=== PATIENT | male | born 1970 | race African-American/Black ===

== ENCOUNTER 2016-12-27 12:05 | Inpatient (IN) | payer OTHER ==
[2016-12-27 13:17] VITALS: BMI 32.3
[2016-12-27] MEDS ORDERED: MAG HYDROX/AL HYDROX/SIMETH 30 ML UNIT-DOSE CUP PO PRN (16:38)
[2016-12-27] MEDS ORDERED: MAGNESIUM CITRATE 300 ML BOTTLE PO PRN (16:38)
[2016-12-27] MEDS ORDERED: LOPERAMIDE HCL 2 MG CAPSULE PO PRN (16:38)
[2016-12-27] MEDS ORDERED: hydrOXYzine PAMOATE 50 MG CAPSULE (FP) PO PRN (16:38)
[2016-12-27] MEDS ORDERED: MAGNESIUM HYDROX 2400MG/30ML ORAL SUSPENSION 30 ML CUP PO PRN (16:38)
[2016-12-27] MEDS ORDERED: P-EPHED 60MG/TRIPROLIDI 2.5MG TABLET PO PRN (16:38)
[2016-12-27] MEDS ORDERED: MENTHOL/PHENOL 1 EACH UD MM PRN (16:38)
[2016-12-27] MEDS ORDERED: NICOTINE POLACRILEX 4 MG GUM BC PRN (16:38)
[2016-12-27] MEDS ORDERED: guaiFENesin/D-METHORPHAN HB 10 ML UNIT-DOSE CUPS PO PRN (16:38)
[2016-12-27] MEDS ORDERED: ACETAMINOPHEN 325 MG TABLET (FP) PO PRN (16:38)
--- NOTE | 2016-12-27 16:38 | HP ---
CIWA Score - CIWA Score Nausea/Vomitin Muscle Tremors: 4-Moderate,w/Arms Extend Anxiety: 4-Mod. Anxious/Guarded Agitation: 5 Paroxysmal Sweats: 2 Orientation: 3-Disoriented Date>2 days Tacttile Disturbances: 0-None Auditory Disturbances: 0-None Visual Disturbances: 0-None Headache: 0-None Present CIWA-Ar Total Score: 20 Admission ROS [facility] - HPI Chief Complaint: withdrawal sx Allergies/Adverse Reactions: Allergies Allergy/AdvReac Type Severity Reaction Status Date / Time No Known Allergies Allergy Verified 12/27/16 13:49 History of Present Illness: 46 YEARS OLD MALE WITH LONG HISTORY OF ALCOHOL NICOTINE DEPENDENCE, HAS HYPERTENSION HYPERLIPIDEMIA, S/P STROKE 2016 NO SEQUELA TREATED WITH ASPIRIN, DENIES MENTAL ILLNESS IS ADMITTED TO DETOX Exam Limitations: No Limitations - Ebola screening Have you traveled outside of the country in the last 21 days: No Have you had contact with anyone from an Ebola affected area: No Have you been sick,other than usual withdrawal symptoms: No Do you have a fever: No - Review of Systems Constitutional: Chills, Changes in sleep, Weight Stable EENT: reports: No Symptoms Reported Respiratory: reports: No Symptoms reported Cardiac: reports: No Symptoms Reported GI: reports: Nausea, Poor Fluid Intake, Vomiting, Indigestion, Abdominal cramping : reports: No Symptoms Reported Musculoskeletal: reports: Back Pain Integumentary: reports: No Symptoms Reported Neuro: reports: Tremors Endocrine: reports: No Symptoms Reported Psychiatric: reports: Judgement Intact, Mood/Affect Appropiate Other Systems: Reviewed and Negative Patient History - Patient Medical History Hx Anemia: No Hx Asthma: No Hx Chronic Obstructive Pulmonary Disease (COPD): No Hx Cancer: No Hx Cardiac Disorders: No Hx Congestive Heart Failure: No Hx Hypertension: Yes Hx Hypercholesterolemia: Yes Hx Pacemaker: No HX Cerebrovascular Accident: No Hx Seizures: No Hx Dementia: No Hx Diabetes: No Hx Gastrointestinal Disorders: Yes Hx Liver Disease: No Hx Genitourinary Disorders: No Hx Sexually Transmitted Disorders: No Hx Renal Disease (ESRD): No Hx Thyroid Disease: No Hx Human Immunodeficiency Virus (HIV): No Hx Hepatitis C: No Hx Depression: No Hx Suicide Attempt: No Hx Bipolar Disorder: No Hx Schizophrenia: No - Patient Surgical History Past Surgical History: No Hx Neurologic Surgery: No Hx Cataract Extraction: No Hx Cardiac Surgery: No Hx Lung Surgery: No Hx Breast Surgery: No Hx Breast Biopsy: No Hx Abdominal Surgery: No Hx Appendectomy: No Hx Cholecystectomy: No Hx Genitourinary Surgery: No Hx Orthopedic Surgery: No - PPD History Previous Implant?: Yes Documented Results: Negative w/o proof Implanted On Prior R Admission?: No PPD to be Administered?: Yes - Smoking Cessation Smoking history: Current every day smoker Have you smoked in the past 12 months: Yes Aproximately how many cigarettes per day: 20 Cigars Per Day: 0 Hx Chewing Tobacco Use: No Initiated information on smoking cessation: Yes 'Breaking Loose' booklet given: 12/27/16 - Substance & Tx. History Hx Alcohol Use: Yes Hx Substance Use: No Substance Use Type: Alcohol, Cocaine Hx Substance Use Treatment: Yes - Substances Abused Crack Route: Smoking Frequency: 1-2 times per week Amount used: $40 Age of first use: 25 Date of Last Use: 12/25/16 Alcohol-beer/rum Route: Oral Frequency: Daily Amount used: 1-2 6 pks./1 pt. Age of first use: 15 Date of Last Use: 12/27/16 Family Disease History - Family Disease History Family Disease History: Heart Disease: Father (NO CONTACT), Other: Father Admission Physical Exam B[facility] - Vital Signs Vital Signs: Vital Signs - 24 hr 12/27/16 13:16 Temperature 97.0 F L Pulse Rate 81 Respiratory 18 Rate Blood Pressure 164/115 - Physical General Appearance: Yes: Nourished, Appropriately Dressed, Moderate Distress, Tremorous, Irritable, Sweating, Anxious HEENTM: Yes: Hearing grossly Normal, Normal ENT Inspection, Normocephalic, Normal Voice Respiratory: Yes: Chest Non-Tender, Lungs Clear, Normal Breath Sounds, No Respiratory Distress, No Accessory Muscle Use Neck: Yes: Supple, Trachea in good position Breast: Yes: Breasts Symetrical Abdominal: Yes: Non Tender, Soft Genitourinary: Yes: Within Normal Limits Back: Yes: Normal Inspection Musculoskeletal: Yes: full range of Motion, Gait Steady, Back pain Extremities: Yes: Normal Inspection, Normal Range of Motion, Non-Tender, Tremors Neurological: Yes: Alert, Motor Strength 5/5, Normal Mood/Affect, Normal Response Integumentary: Yes: Warm Lymphatic: Yes: Within Normal Limits - Diagnostic (1) Alcohol dependence with uncomplicated withdrawal Current Visit: Yes Status: Acute (2) Methadone maintenance therapy patient Current Visit: Yes Status: Acute Comment: 90 MG VERIFIED BY S RN A.MArslan (3) Hypertension Current Visit: Yes Status: Acute Qualifiers: Hypertension type: essential hypertension Qualified Code(s): I10 - Essential (primary) hypertension (4) Hyperlipidemia Current Visit: Yes Status: Acute Qualifiers: Hyperlipidemia type: pure hypercholesterolemia Qualified Code(s): E78.0 - Pure hypercholesterolemia (5) S/P stroke due to cerebrovascular disease Current Visit: Yes Status: Resolved Comment: NO SEQUELA (6) Nicotine dependence Current Visit: Yes Status: Acute Qualifiers: Nicotine product type: cigarettes Substance use status: in withdrawal Qualified Code(s): F17.213 - Nicotine dependence, cigarettes, with withdrawal (7) Cocaine dependence, uncomplicated Current Visit: Yes Status: Chronic Cleared for Admission [facility] - Detox or Rehab [facility] Level of Care: Medically Managed Detox Regimen/Protocol: Librium S Breath Alcohol Content Breath Alcohol Content: 0 Urine Drug Screen - Results Drug Screen Negative: No Urine Drug Screen Results: LEX-Cocaine, MTD-Methadone
[2016-12-27] MEDS ORDERED: CYCLOBENZAPRINE HCL 10 MG TABLET (FP) PO PRN (16:41)
[2016-12-27] MEDS: chlordiazePOXIDE HCL 25 MG CAPSULE PO PRN (17:50)
[2016-12-27] MEDS: cloNIDine HCL 0.1 MG TABLET PO PRN (18:03)
[2016-12-27] MEDS: PATIENT'S OWN MEDICATION (NON-FORMULARY) (Simvastatin 40 MG) PO SCH (23:01)
[2016-12-27] MEDS: chlordiazePOXIDE HCL 25 MG CAPSULE PO SCH (23:01)
[2016-12-27] MEDS: RANITIDINE HCL 150 MG TABLET (FP) PO SCH (23:01)
[2016-12-27] MEDS: THIAMINE HCL 100 MG TABLET (FP) PO SCH (23:01)
[2016-12-27 23:13] LABS: URINE APPEARANCE CLEAR; URINE BILIRUBIN NEGATIVE (NEGATIVE); URINE BLOOD NEGATIVE (NEGATIVE); URINE COLOR LTYELLOW; URINE GLUCOSE (UA) NEGATIVE (NEGATIVE); URINE KETONE NEGATIVE (NEGATIVE); URINE LEUK ESTERASE NEGATIVE (NEGATIVE); URINE NITRITE NEGATIVE (NEGATIVE); URINE PROTEIN 3+ (NEGATIVE); URINE UROBILINOGEN NEGATIVE E.U./dl (0.2-1.0)
[2016-12-27 23:22] LABS: URINE BACTERIA RARE /hpf (NONE SEEN); URINE HYALINE CAST 2 /lpf; URINE MUCUS RARE; URINE RBC 3 /hpf (0-3); URINE WBC <1 /hpf (3-5)
[2016-12-28] MEDS ORDERED: METHADONE HCL 10 MG TABLET ONE (04:56)
[2016-12-28] MEDS ORDERED: METHADONE HCL 40 MG DISPERSABLE TABLET ONE (04:56)
[2016-12-28] MEDS: chlordiazePOXIDE HCL 25 MG CAPSULE PO SCH ×4 (05:22→22:05)
[2016-12-28] MEDS: METHADONE 80 MG, METHADONE 10 MG PO SCH (05:22)
[2016-12-28] MEDS ORDERED: METHADONE HCL 10 MG TABLET PO SCH (06:00)
[2016-12-28] MEDS: cloNIDine HCL 0.1 MG TABLET PO PRN (06:29)
[2016-12-28] MEDS: amLODIPine BESYLATE 5 MG TABLET (FP) PO SCH (10:05)
[2016-12-28] MEDS: NICOTINE 21 MG/24 HOURS TOPICAL PATCH TD SCH (10:05)
[2016-12-28] MEDS: ASPIRIN 81 MG CHEWABLE TABLETS PO SCH (10:05)
[2016-12-28] MEDS: RANITIDINE HCL 150 MG TABLET (FP) PO SCH ×2 (10:05→22:05)
[2016-12-28] MEDS: PRENATAL VITAMINS W/ FOLIC ACID TABLET (FP) PO SCH (10:05)
--- NOTE | 2016-12-28 10:15 | PN ---
[facility] CIWA - CIWA Score Nausea/Vomitin-No Nausea/No Vomiting Muscle Tremors: 4-Moderate,w/Arms Extend Anxiety: 4-Mod. Anxious/Guarded Agitation: 3 Paroxysmal Sweats: 3 Orientation: 0-Oriented Tacttile Disturbances: 0-None Auditory Disturbances: 0-None Visual Disturbances: 0-None Headache: 0-None Present CIWA-Ar Total Score: 14 S Progress Note (SOAP) Subjective: Anxiety,tremors,sweating,interrupted sleep,restless Objective: 12/28/16 10:14 Vital Signs - 8 hr 12/28/16 12/28/16 05:53 09:44 Temperature 95.7 F L 97 F L Pulse Rate 51 L 60 Respiratory 18 20 Rate Blood Pressure 160/101 99/74 Laboratory Tests 12/27/16 22:50 Urine Color Ltyellow Urine Appearance Clear Urine pH 5.0 Ur Specific [place] 1.016 Urine Protein 3+ H Urine Glucose (UA) Negative Urine Ketones Negative Urine Blood Negative Urine Nitrite Negative Urine Bilirubin Negative Urine Urobilinogen Negative Ur Leukocyte Esterase Negative Urine RBC 3 Urine WBC <1 Urine Bacteria Rare Hyaline Casts 2 Urine Mucus Rare u/a noted Assessment: 12/28/16 10:15 Withdrawal sx. Plan: Continue detox
[2016-12-28 10:36] LABS: MCH 31.5 pg (25.7-33.7); MCHC 33.3 g/dl (32.0-35.9); MEAN CELL VOLUME 94.7 fl (80-96); PLATELET COUNT 273 K/MM3 (134-434); WHITE BLOOD COUNT 9.4 K/mm3 (4.0-10.0)
[2016-12-28 10:39] LABS: ALBUMIN 3.9 g/dl (3.4-5.0); CALCIUM 9.7 mg/dL (8.5-10.1); CREATININE 2.3 mg/dL (0.7-1.3)
[2016-12-28 10:41] LABS: BILIRUBIN,TOTAL 0.3 mg/dL (0.2-1.0); TOT PROT 7.9 g/dl (6.4-8.2)
[2016-12-28 11:03] LABS: HIV 1 & 2 AB NEGATIVE; HIV 1 AGp24 NEGATIVE
--- NOTE | 2016-12-28 11:07 | EKG ---
Test Reason : Blood Pressure : / mmHG Vent. Rate : 063 BPM Atrial Rate : 063 BPM P-R Int : 172 ms QRS Dur : 108 ms QT Int : 416 ms P-R-T Axes : 025 -16 035 degrees QTc Int : 425 ms SINUS RHYTHM WITH FREQUENT PREMATURE VENTRICULAR COMPLEXES OTHERWISE NORMAL ECG NO PREVIOUS ECGS AVAILABLE Confirmed by GEORGE SHANE, MATTHEW ([id number]) on 12/28/2016 11:07:20 AM Referred By: Carlton Peterson Confirmed By:MATTHEW VAZQUEZ MD
[2016-12-28] MEDS: THIAMINE HCL 100 MG TABLET (FP) PO SCH (22:05)
[2016-12-28] MEDS: PATIENT'S OWN MEDICATION (NON-FORMULARY) (Simvastatin 40 MG) PO SCH (22:06)
[2016-12-29] MEDS: chlordiazePOXIDE HCL 25 MG CAPSULE PO PRN (02:13)
[2016-12-29] MEDS ORDERED: METHADONE HCL 40 MG DISPERSABLE TABLET ONE (04:02)
[2016-12-29] MEDS ORDERED: METHADONE HCL 10 MG TABLET ONE (04:02)
[2016-12-29] MEDS: METHADONE 80 MG, METHADONE 10 MG PO SCH (05:38)
[2016-12-29] MEDS: cloNIDine HCL 0.1 MG TABLET PO PRN ×2 (05:40→22:06)
[2016-12-29] MEDS: chlordiazePOXIDE HCL 25 MG CAPSULE PO SCH ×3 (05:40→17:04)
[2016-12-29] MEDS: NICOTINE 21 MG/24 HOURS TOPICAL PATCH TD SCH (10:11)
[2016-12-29] MEDS: ASPIRIN 81 MG CHEWABLE TABLETS PO SCH (10:11)
[2016-12-29] MEDS: RANITIDINE HCL 150 MG TABLET (FP) PO SCH ×2 (10:11→22:06)
[2016-12-29] MEDS: PRENATAL VITAMINS W/ FOLIC ACID TABLET (FP) PO SCH (10:11)
[2016-12-29] MEDS: amLODIPine BESYLATE 5 MG TABLET (FP) PO SCH (10:11)
[2016-12-29] MEDS ORDERED: amLODIPine BESYLATE 5 MG TABLET (FP) PO SCH (10:56)
--- NOTE | 2016-12-29 12:29 | PN ---
S CIWA - CIWA Score Nausea/Vomitin-No Nausea/No Vomiting Muscle Tremors: 4-Moderate,w/Arms Extend Anxiety: 3 Agitation: 3 Paroxysmal Sweats: 3 Orientation: 0-Oriented Tacttile Disturbances: 0-None Auditory Disturbances: 0-None Visual Disturbances: 0-None Headache: 0-None Present CIWA-Ar Total Score: 13 S Progress Note (SOAP) Subjective: Anxiety,tremors,sweating,interrupted sleep,restless. Objective: 12/29/16 12:28 Vital Signs - 8 hr 12/29/16 12/29/16 06:07 09:40 Temperature 96.5 F L 97.1 F L Pulse Rate 57 L 53 L Respiratory 18 18 Rate Blood Pressure 156/92 134/88 Laboratory Tests 12/27/16 12/27/16 12/27/16 06:00 08:00 22:50 WBC RBC Hgb Hct MCV MCHC RDW Plt Count MPV Sodium Potassium Chloride Carbon Dioxide Anion Gap BUN Creatinine Creat Clearance w eGFR Random Glucose Calcium Total Bilirubin AST ALT Alkaline Phosphatase Total Protein Albumin Urine Color Ltyellow Urine Appearance Clear Urine pH 5.0 Ur Specific [place] 1.016 Urine Protein 3+ H Urine Glucose (UA) Negative Urine Ketones Negative Urine Blood Negative Urine Nitrite Negative Urine Bilirubin Negative Urine Urobilinogen Negative Ur Leukocyte Esterase Negative Urine RBC 3 Urine WBC <1 Urine Bacteria Rare Hyaline Casts 2 Urine Mucus Rare RPR Titer Hepatitis C Antibody <0.1 HIV 1&2 Antibody Screen Negative HIV P24 Antigen Negative 12/28/16 12/28/16 12/28/16 06:00 06:00 06:00 WBC 9.4 RBC 4.58 Hgb 14.4 Hct 43.4 MCV 94.7 MCHC 33.3 RDW 15.0 Plt Count 273 MPV 8.0 Sodium 140 Potassium 4.3 Chloride 102 Carbon Dioxide 27 Anion Gap 11 BUN 31 H Creatinine 2.3 H Creat Clearance w eGFR 30.63 Random Glucose 116 H Calcium 9.7 Total Bilirubin 0.3 AST 29 ALT 38 Alkaline Phosphatase 104 Total Protein 7.9 Albumin 3.9 Urine Color Urine Appearance Urine pH Ur Specific [place] Urine Protein Urine Glucose (UA) Urine Ketones Urine Blood Urine Nitrite Urine Bilirubin Urine Urobilinogen Ur Leukocyte Esterase Urine RBC Urine WBC Urine Bacteria Hyaline Casts Urine Mucus RPR Titer Nonreactive Hepatitis C Antibody HIV 1&2 Antibody Screen HIV P24 Antigen labs noted,repeat creat,bun,fbs & u/a Assessment: 12/29/16 12:29 Withdrawal Sx. Plan: Continue detox
[2016-12-29] MEDS: chlordiazePOXIDE 5 MG CAPSULE PO SCH (22:06)
[2016-12-29] MEDS: THIAMINE HCL 100 MG TABLET (FP) PO SCH (22:06)
[2016-12-29] MEDS: PATIENT'S OWN MEDICATION (NON-FORMULARY) (Simvastatin 40 MG) PO SCH (22:07)
[2016-12-29] MEDS: diphenhydrAMINE HCL 50 MG CAPSULE PO PRN (22:23)
[2016-12-30] MEDS ORDERED: METHADONE HCL 10 MG TABLET ONE (03:34)
[2016-12-30] MEDS ORDERED: METHADONE HCL 40 MG DISPERSABLE TABLET ONE (03:34)
[2016-12-30] MEDS: chlordiazePOXIDE 5 MG CAPSULE PO SCH ×3 (05:16→17:36)
[2016-12-30] MEDS: METHADONE 80 MG, METHADONE 10 MG PO SCH (05:16)
--- NOTE | 2016-12-30 09:50 | PN ---
S Progress Note (SOAP) Subjective: Sweating,interrupted sleep,restless Objective: 12/30/16 09:48 Vital Signs - 8 hr 12/30/16 12/30/16 12/30/16 03:30 06:55 09:25 Temperature 97.2 F L 97.5 F L Pulse Rate 65 61 Respiratory 18 18 20 Rate Blood Pressure 134/87 108/77 Laboratory Last Values WBC 9.4 K/mm3 (4.0-10.0) 12/28/16 06:00 RBC 4.58 M/mm3 (4.00-5.60) 12/28/16 06:00 Hgb 14.4 GM/dL (11.7-16.9) 12/28/16 06:00 Hct 43.4 % (35.4-49) 12/28/16 06:00 MCV 94.7 fl (80-96) 12/28/16 06:00 MCHC 33.3 g/dl (32.0-35.9) 12/28/16 06:00 RDW 15.0 % (11.9-15.9) 12/28/16 06:00 Plt Count 273 K/MM3 (134-434) 12/28/16 06:00 MPV 8.0 fl (7.5-11.1) 12/28/16 06:00 Sodium 140 mmol/L (136-145) 12/28/16 06:00 Potassium 4.3 mmol/L (3.5-5.1) 12/28/16 06:00 Chloride 102 mmol/L (98-107) 12/28/16 06:00 Carbon Dioxide 27 mmol/L (21-32) 12/28/16 06:00 Anion Gap 11 (8-16) 12/28/16 06:00 BUN 31 mg/dL (7-18) H 12/28/16 06:00 Creatinine 2.3 mg/dL (0.7-1.3) H 12/28/16 06:00 Creat Clearance w eGFR 30.63 (>60) 12/28/16 06:00 Random Glucose 116 mg/dL (74-106) H 12/28/16 06:00 Calcium 9.7 mg/dL (8.5-10.1) 12/28/16 06:00 Total Bilirubin 0.3 mg/dL (0.2-1.0) 12/28/16 06:00 AST 29 U/L (15-37) 12/28/16 06:00 ALT 38 U/L (12-78) 12/28/16 06:00 Alkaline Phosphatase 104 U/L (45-117) 12/28/16 06:00 Total Protein 7.9 g/dl (6.4-8.2) 12/28/16 06:00 Albumin 3.9 g/dl (3.4-5.0) 12/28/16 06:00 Urine Color Ltyellow 12/27/16 22:50 Urine Appearance Clear 12/27/16 22:50 Urine pH 5.0 (5.0-8.0) 12/27/16 22:50 Ur Specific [place] 1.016 (1.001-1.035) 12/27/16 22:50 Urine Protein 3+ (NEGATIVE) H 12/27/16 22:50 Urine Glucose (UA) Negative (NEGATIVE) 12/27/16 22:50 Urine Ketones Negative (NEGATIVE) 12/27/16 22:50 Urine Blood Negative (NEGATIVE) 12/27/16 22:50 Urine Nitrite Negative (NEGATIVE) 12/27/16 22:50 Urine Bilirubin Negative (NEGATIVE) 12/27/16 22:50 Urine Urobilinogen Negative E.U./dl (0.2-1.0) 12/27/16 22:50 Ur Leukocyte Esterase Negative (NEGATIVE) 12/27/16 22:50 Urine RBC 3 /hpf (0-3) 12/27/16 22:50 Urine WBC <1 /hpf (3-5) 12/27/16 22:50 Urine Bacteria Rare /hpf (NONE SEEN) 12/27/16 22:50 Hyaline Casts 2 /lpf 12/27/16 22:50 Urine Mucus Rare 12/27/16 22:50 RPR Titer Nonreactive (NONREACTIVE) 12/28/16 06:00 Hepatitis C Antibody <0.1 s/co ratio (0.0-0.9) 12/27/16 06:00 HIV 1&2 Antibody Screen Negative 12/27/16 08:00 HIV P24 Antigen Negative 12/27/16 08:00 labs noted Assessment: 12/30/16 09:49 Withdrawal sx. Plan: Continue detox
[2016-12-30 09:55] LABS: CREATININE 2.2 mg/dL (0.7-1.3)
[2016-12-30] MEDS: ASPIRIN 81 MG CHEWABLE TABLETS PO SCH (10:07)
[2016-12-30] MEDS: PRENATAL VITAMINS W/ FOLIC ACID TABLET (FP) PO SCH (10:07)
[2016-12-30] MEDS: amLODIPine BESYLATE 10 MG TABLET (FP) PO SCH (10:08)
[2016-12-30] MEDS: RANITIDINE HCL 150 MG TABLET (FP) PO SCH ×2 (10:08→22:08)
[2016-12-30] MEDS: NICOTINE 21 MG/24 HOURS TOPICAL PATCH TD SCH (10:08)
[2016-12-30] MEDS: cloNIDine HCL 0.1 MG TABLET PO PRN (22:08)
[2016-12-30] MEDS: THIAMINE HCL 100 MG TABLET (FP) PO SCH (22:08)
[2016-12-30] MEDS: chlordiazePOXIDE HCL 10 MG CAPSULE PO SCH (22:08)
[2016-12-30] MEDS: diphenhydrAMINE HCL 50 MG CAPSULE PO PRN (22:08)
[2016-12-30] MEDS: PATIENT'S OWN MEDICATION (NON-FORMULARY) (Simvastatin 40 MG) PO SCH (22:10)
[2016-12-30 22:41] LABS: URINE APPEARANCE CLEAR; URINE BILIRUBIN NEGATIVE (NEGATIVE); URINE BLOOD NEGATIVE (NEGATIVE); URINE COLOR LTYELLOW; URINE GLUCOSE (UA) NEGATIVE (NEGATIVE); URINE KETONE NEGATIVE (NEGATIVE); URINE LEUK ESTERASE NEGATIVE (NEGATIVE); URINE NITRITE NEGATIVE (NEGATIVE); URINE UROBILINOGEN NEGATIVE E.U./dl (0.2-1.0)
[2016-12-30 22:46] LABS: URINE PROTEIN 2+ (NEGATIVE)
[2016-12-30 23:15] LABS: URINE MUCUS RARE; URINE RBC 1 /hpf (0-3); URINE WBC 1 /hpf (3-5)
[2016-12-31] MEDS ORDERED: METHADONE HCL 10 MG TABLET ONE (01:39)
[2016-12-31] MEDS ORDERED: METHADONE HCL 40 MG DISPERSABLE TABLET ONE (01:40)
[2016-12-31] MEDS: METHADONE 80 MG, METHADONE 10 MG PO SCH (05:30)
[2016-12-31] MEDS: chlordiazePOXIDE HCL 10 MG CAPSULE PO SCH ×2 (05:30→10:56)
[2016-12-31 06:38] VITALS: BP 147/97; PULSE 64; TEMP 96.2
--- NOTE | 2016-12-31 09:05 | DS ---
[facility] Detox Discharge Summary Admission Date: 12/27/16 Discharge Date: 12/31/16 - History Present History: Alcohol Dependence, Cocaine Dependence, MMTP Additional Comments: DETOX COMPLETED.ALERT O X 3. NAD. PT INSTRUCTED TO FOLLOW UP WITH HIS PMD AT [address] [place] [address] FOR MEDICAL MANAGEMENT. Pertinent Past History: HYPERLIPIDEMIA HTN S/P STROKE - Physical Exam Results Vital Signs: Vital Signs Temperature 96.2 F L 12/31/16 06:37 Pulse Rate 64 12/31/16 06:37 Respiratory Rate 18 12/31/16 06:37 Blood Pressure 147/97 12/31/16 06:37 O2 Sat by Pulse Oximetry (%) Pertinent Admission Physical Exam Findings: WITHDRAWAL SX - Treatment Hospital Course: Detox Protocol Followed, Detoxed Safely, Responded well, Discharged Condition Good - Medication Discharge Medications: Ambulatory Orders Amlodipine Besylate [Norvasc -] 5 mg PO DAILY 12/27/16 Aspirin [ASA -] 81 mg PO DAILY 12/27/16 Multivitamins [Multivit ([facility] Formulary)] 1 tab PO DAILY 12/27/16 Simvastatin [Zocor -] 40 mg PO HS 12/27/16 - Diagnosis (1) Alcohol dependence with uncomplicated withdrawal Current Visit: Yes Status: Acute (2) Hyperlipidemia Current Visit: Yes Status: Chronic Qualifiers: Hyperlipidemia type: pure hypercholesterolemia Qualified Code(s): E78.0 - Pure hypercholesterolemia (3) Hypertension Current Visit: Yes Status: Chronic Qualifiers: Hypertension type: essential hypertension Qualified Code(s): I10 - Essential (primary) hypertension (4) Methadone maintenance therapy patient Current Visit: Yes Status: Chronic (5) Nicotine dependence Current Visit: Yes Status: Acute Qualifiers: Nicotine product type: cigarettes Substance use status: in withdrawal Qualified Code(s): F17.213 - Nicotine dependence, cigarettes, with withdrawal (6) Cocaine dependence, uncomplicated Current Visit: Yes Status: Chronic (7) S/P stroke due to cerebrovascular disease Current Visit: Yes Status: Resolved - AMA Did Patient Leave Against Medical Advice: No
[2016-12-31] MEDS: ASPIRIN 81 MG CHEWABLE TABLETS PO SCH (10:55)
[2016-12-31] MEDS: RANITIDINE HCL 150 MG TABLET (FP) PO SCH (10:56)
[2016-12-31] MEDS: PRENATAL VITAMINS W/ FOLIC ACID TABLET (FP) PO SCH (10:56)
[2016-12-31] MEDS: amLODIPine BESYLATE 10 MG TABLET (FP) PO SCH (10:56)
[2016-12-31] MEDS: NICOTINE 21 MG/24 HOURS TOPICAL PATCH TD SCH (10:56)
== END 2016-12-31 09:36 | disposition home or self-care (01) | DRG 773 ==
LOC: YASAS 12:05 → Y3N 15:21
PROVIDERS: ADMIT Internal Medicine; ATTEND Internal Medicine
PROC: HZ2ZZZZ Detoxification Services for Substance Abuse Treatment (ICD-10-PCS; principal; 2016-12-31)
DX: F11.20 Opioid dependence, uncomplicated (principal); F10.230 Alcohol dependence with withdrawal, uncomplicated; F14.20 Cocaine dependence, uncomplicated; F17.213 Nicotine dependence, cigarettes, with withdrawal; I10 Essential (primary) hypertension; E78.5 Hyperlipidemia, unspecified; Z86.73 Personal history of transient ischemic attack (TIA), and cerebral infarction without residual deficits
CPT/HCPCS: 36415; 80053; 81003; 81015; 82565; 82947; 84520; 85027; 86593; 87389; 93005; 93010

== ENCOUNTER 2018-02-01 11:17 | Inpatient (IN) | payer OTHER ==
[2018-02-01 13:24] VITALS: BMI 31.1
--- NOTE | 2018-02-01 13:45 | HP ---
CIWA Score - CIWA Score Nausea/Vomitin Muscle Tremors: 3 Anxiety: 3 Agitation: 3 Paroxysmal Sweats: 2 Orientation: 0-Oriented Tacttile Disturbances: 1-Very Mild Itch/Numbness Auditory Disturbances: 1-Very Mild Visual Disturbances: 0-None Headache: 2-Mild CIWA-Ar Total Score: 18 Admission ROS S - [facility] Chief Complaint: I DAVID HELP TO STOP DRINKING ALCOHOL,HEROIN ABUSED,MMTP 90/DAY Allergies/Adverse Reactions: Allergies Allergy/AdvReac Type Severity Reaction Status Date / Time No Known Allergies Allergy Verified 02/01/18 13:33 History of Present Illness: THIS 47 YEARS OLD MALE WITH ALCOHOL DEPENDENCE,HEROIN ABUSED,COCAINE DEPENDENCE , MMTP 90 MGS/DAY,LAST MEDICATED TODAY, LAST TREATMENT 12/27/16 TO 12/31/16 HISTORY OF HYPERTENSION, LONGEST PERIOD OF SOBRIETY 2 YEARS NICOTINE DEPENDENCE SEEKING DETOX - Ebola screening Have you traveled outside of the country in the last 21 days: No Have you had contact with anyone from an Ebola affected area: No Have you been sick,other than usual withdrawal symptoms: No Do you have a fever: No - Review of Systems Constitutional: Chills, Loss of Appetite, Malaise, Night Sweats, Changes in sleep, Weakness, Unintentional Wgt. Loss EENT: reports: Nose Congestion Respiratory: reports: No Symptoms reported Cardiac: reports: No Symptoms Reported GI: reports: Diarrhea, Nausea, Vomiting : reports: No Symptoms Reported Musculoskeletal: reports: Back Pain, Muscle Pain Integumentary: reports: Dryness Neuro: reports: Headache, Tremors Endocrine: reports: No Symptoms Reported Hematology: reports: No Symptoms Reported Psychiatric: reports: No Sypmtoms Reported, Judgement Intact, Mood/Affect Appropiate, Orientated x3 (INSOMNIA), Anxious, Depressed Patient History - Patient Medical History Hx Anemia: No Hx Asthma: No Hx Chronic Obstructive Pulmonary Disease (COPD): No Hx Cancer: No Hx Cardiac Disorders: No Hx Congestive Heart Failure: No Hx Hypertension: Yes (ON MED) Hx Hypercholesterolemia: Yes (ON MED) Hx Pacemaker: No HX Cerebrovascular Accident: No Hx Seizures: No Hx Dementia: No Hx Diabetes: No Hx Gastrointestinal Disorders: Yes Hx Liver Disease: No Hx Genitourinary Disorders: No Hx Sexually Transmitted Disorders: No Hx Renal Disease (ESRD): No Hx Thyroid Disease: No Hx Human Immunodeficiency Virus (HIV): No (11/10 NEGATIVE) Hx Hepatitis C: No Hx Depression: Yes (ANXIETY) Hx Suicide Attempt: No Hx Bipolar Disorder: No Hx Schizophrenia: No Other Medical History: NO SUCIDAL,NO HOMICIDAL,INSOMNIA - Patient Surgical History Past Surgical History: No Hx Neurologic Surgery: No Hx Cataract Extraction: No Hx Cardiac Surgery: No Hx Lung Surgery: No Hx Breast Surgery: No Hx Breast Biopsy: No Hx Abdominal Surgery: No Hx Appendectomy: No Hx Cholecystectomy: No Hx Genitourinary Surgery: No Hx Section: No Hx Orthopedic Surgery: No Anesthesia Reaction: No - PPD History Previous Implant?: Yes Documented Results: Negative w/o proof Implanted On Prior [facility] Admission?: Yes Date: 12/29/16 Results: 0 MM PPD to be Administered?: Yes - Smoking Cessation Smoking history: Current every day smoker Have you smoked in the past 12 months: Yes Aproximately how many cigarettes per day: 10 Cigars Per Day: 0 Hx Chewing Tobacco Use: No Initiated information on smoking cessation: Yes 'Breaking Loose' booklet given: 02/01/18 - Substance & Tx. History Hx Alcohol Use: Yes Hx Substance Use: Yes Substance Use Type: Alcohol, Cocaine, Heroin Hx Substance Use Treatment: Yes ([facility] 12/27/16 TO 12/31/16) - Substances Abused Alcohol Route: Oral Frequency: Daily Amount used: 2-3 6PKS BEER OR 1 pint cognac Age of first use: 15 Date of Last Use: 02/01/18 Cocaine Route: Inhalation Frequency: 1-2 times per week Amount used: $100 Age of first use: 23 Date of Last Use: 01/31/18 Heroin Route: Inhalation Frequency: 1-2 times per week Amount used: 6-10 bags Age of first use: 37 Date of Last Use: 01/31/18 Family Disease History - Family Disease History Family Disease History: Heart Disease: Father (NO CONTACT), Other: Father, Sister (ALCOHOL) Admission Physical Exam S - Vital Signs Vital Signs: Vital Signs - 24 hr 02/01/18 13:07 Temperature 97.1 F L Pulse Rate 79 Respiratory 18 Rate Blood Pressure 149/103 - Physical General Appearance: Yes: Moderate Distress, Tremorous, Irritable, Sweating, Anxious HEENTM: Yes: Normal ENT Inspection, DORIS, Pharynx Normal Respiratory: Yes: Within Normal Limits, Lungs Clear, Normal Breath Sounds Neck: Yes: Within Normal Limits, Supple, Trachea in good position Breast: Yes: Within Normal Limits Cardiology: Yes: Within Normal Limits, Regular Rhythm, Regular Rate, S1, S2 Abdominal: Yes: Within Normal Limits, Normal Bowel Sounds, Non Tender, Flat, Soft Genitourinary: Yes: Within Normal Limits Back: Yes: Muscle Spasm Musculoskeletal: Yes: full range of Motion, Back pain, Joint Stiffness, Muscle Pain Extremities: Yes: Within Normal Limits, Normal Range of Motion, Tremors Neurological: Yes: international marketing executive II-XII NML intact, Fully Oriented, Alert, Motor Strength 5/5 Integumentary: Yes: Dry Lymphatic: Yes: Within Normal Limits - Diagnostic (1) Alcohol dependence with uncomplicated withdrawal Current Visit: Yes Status: Acute (2) Nicotine dependence Current Visit: Yes Status: Acute Qualifiers: Nicotine product type: cigarettes Substance use status: in withdrawal Qualified Code(s): F17.213 - Nicotine dependence, cigarettes, with withdrawal (3) Cocaine dependence, uncomplicated Current Visit: Yes Status: Acute (4) Hyperlipidemia Current Visit: Yes Status: Chronic Qualifiers: Hyperlipidemia type: pure hypercholesterolemia Qualified Code(s): E78.00 - Pure hypercholesterolemia, unspecified; E78.0 - Pure hypercholesterolemia (5) Hypertension Current Visit: Yes Status: Chronic Qualifiers: Hypertension type: essential hypertension Qualified Code(s): I10 - Essential (primary) hypertension (6) Methadone maintenance therapy patient Current Visit: Yes Status: Chronic Comment: 90 MG VERIFIED BY [facility] RN A.M. (7) Syncope Current Visit: Yes Status: Acute Qualifiers: Syncope type: unspecified Qualified Code(s): R55 - Syncope and collapse (8) Insomnia secondary to depression with anxiety Current Visit: Yes Status: Acute Cleared for Admission [facility] - Detox or Rehab [facility] Level of Care: Medically Managed Detox Regimen/Protocol: Librium [facility] Breath Alcohol Content Breath Alcohol Content: 0.081 Urine Drug Screen - Results Drug Screen Negative: No Urine Drug Screen Results: LEX-Cocaine, OPI-Opiates, MTD-Methadone
[2018-02-01] MEDS ORDERED: IBUPROFEN 400 MG TABLET (FP) PO PRN (13:56)
[2018-02-01] MEDS ORDERED: LOPERAMIDE HCL 2 MG CAPSULE PO PRN (13:56)
[2018-02-01] MEDS ORDERED: MAG HYDROX/AL HYDROX/SIMETH 30 ML UNIT-DOSE CUP PO PRN (13:56)
[2018-02-01] MEDS ORDERED: P-EPHED 60MG/TRIPROLIDI 2.5MG TABLET PO PRN (13:56)
[2018-02-01] MEDS ORDERED: chlordiazePOXIDE HCL 25 MG CAPSULE PO PRN (13:56)
[2018-02-01] MEDS ORDERED: hydrOXYzine PAMOATE 50 MG CAPSULE (FP) PO PRN (13:56)
[2018-02-01] MEDS ORDERED: MENTHOL/PHENOL 1 EACH UD MM PRN (13:56)
[2018-02-01] MEDS ORDERED: NICOTINE POLACRILEX 2 MG GUM BUC PRN (13:56)
[2018-02-01] MEDS ORDERED: MAGNESIUM HYDROX 2400MG/30ML ORAL SUSPENSION 30 ML CUP PO PRN (13:56)
[2018-02-01] MEDS ORDERED: MAGNESIUM CITRATE 300 ML BOTTLE PO PRN (13:56)
[2018-02-01] MEDS ORDERED: guaiFENesin/D-METHORPHAN HB 10 ML UNIT-DOSE CUPS PO PRN (13:56)
[2018-02-01] MEDS ORDERED: chlordiazePOXIDE HCL 25 MG CAPSULE PO ONE (14:30)
[2018-02-01] MEDS: NICOTINE 21 MG/24 HOURS TOPICAL PATCH TD SCH (15:16)
[2018-02-01] MEDS: amLODIPine BESYLATE 5 MG TABLET (FP) PO SCH (15:16)
--- NOTE | 2018-02-01 17:05 | CONSULT ---
[facility] Psychiatric Consult - Data Date of interview: 02/01/18 Admission source: [facility] Identifying data: Readmission to [facility] for this 47 y/o AA male seeking detox treatment on for heroin,alcohol and cocaine dependence.Patient is ,a father of two,domiciled,unemployed and supported on [facility] benefits. Substance Abuse History: Confirmed by patient in this interview. Details in current [facility] report included in this document : Smoking history: Current every day smoker. Have you smoked in the past 12 months: Yes. Aproximately how many cigarettes per day: 10. Cigars Per Day: 0. Hx Chewing Tobacco Use: No. Initiated information on smoking cessation: Yes. 'Breaking Loose' booklet given : 02/01/18. - Substance & Tx. History. Hx Alcohol Use: Yes. Hx Substance Use : Yes. Substance Use Type: Alcohol, Cocaine, Heroin. Hx Substance Use Treatment: Yes ([facility] 12/27/16 TO 12/31/16) Medical History: Hypertension,dyslipidemia and a history of CVA (no residual deficits) in 2016. Psychiatric History: Patient denies history of psychiatric hospitalizations or suicide attempts.Mr Murcia is currently on methadone maintenance (90 mg/day). Physical/Sexual Abuse/Trauma History: Patient denies. Additional Comment: Urine Drug Screen Results: LEX-Cocaine, OPI-Opiates, MTD- Methadone.Noted. Mental Status Exam - Mental Status Exam Alert and Oriented to: Time, Place, Person Cognitive Function: Good Patient Appearance: Well Groomed Mood: Nervous, Withdrawn Affect: Mood Congruent Patient Behavior: Fatigued, Appropriate, Cooperative Speech Pattern: Clear, Appropriate Voice Loudness: Normal Thought Process: Intact, Goal Oriented Thought Disorder: Not Present Hallucinations: Denies Suicidal Ideation: Denies Homicidal Ideation: Denies Insight/Judgement: Poor Sleep: Well Appetite: Good Muscle strength/Tone: Normal Gait/Station: Normal Psychiatric Findings - Problem List ([place] 1, 2,3) (1) Opioid dependence on agonist therapy Current Visit: Yes Status: Acute (2) Alcohol dependence with uncomplicated withdrawal Current Visit: Yes Status: Acute (3) Cocaine dependence, uncomplicated Current Visit: Yes Status: Acute (4) Nicotine dependence Current Visit: Yes Status: Acute Qualifiers: Nicotine product type: cigarettes Substance use status: in withdrawal Qualified Code(s): F17.213 - Nicotine dependence, cigarettes, with withdrawal - Initial Treatment Plan Initial Treatment Plan: Psychotherapy.Sleep hygiene.Detoxification initiated.Observation.
[2018-02-01] MEDS: chlordiazePOXIDE HCL 25 MG CAPSULE PO SCH ×2 (17:32→22:34)
[2018-02-01 22:01] LABS: URINE APPEARANCE CLEAR; URINE BILIRUBIN NEGATIVE (<2.0 mg/dL); URINE COLOR LTYELLOW; URINE GLUCOSE (UA) NEGATIVE (NEGATIVE); URINE KETONE NEGATIVE (NEGATIVE); URINE LEUK ESTERASE NEGATIVE (NEGATIVE); URINE NITRITE NEGATIVE (NEGATIVE); URINE UROBILINOGEN NEGATIVE mg/dL (0.2-1.0)
[2018-02-01 22:12] LABS: URINE PROTEIN 2+ (NEGATIVE)
[2018-02-01 22:18] LABS: URINE BACTERIA RARE /hpf (NONE SEEN)
[2018-02-01] MEDS: cloNIDine HCL 0.1 MG TABLET PO SCH (22:34)
[2018-02-01] MEDS: THIAMINE HCL 100 MG TABLET (FP) PO SCH (22:34)
[2018-02-01] MEDS: ATORVASTATIN CA 20 MG TABLET (FP) PO SCH (22:34)
--- NOTE | 2018-02-01 23:41 | EKG ---
Test Reason : Blood Pressure : / mmHG Vent. Rate : 074 BPM Atrial Rate : 074 BPM P-R Int : 164 ms QRS Dur : 102 ms QT Int : 360 ms P-R-T Axes : 053 -22 039 degrees QTc Int : 399 ms NORMAL SINUS RHYTHM NONSPECIFIC T WAVE ABNORMALITY ABNORMAL ECG WHEN COMPARED WITH ECG OF 27-DEC-2016 17:51, PREMATURE VENTRICULAR COMPLEXES ARE NO LONGER PRESENT Confirmed by CLINT SHANE, KATHY ([id number]) on 02/01/2018 11:41:11 PM Referred By: Confirmed By:KATHY JARAMILLO MD
[2018-02-02] MEDS: chlordiazePOXIDE HCL 25 MG CAPSULE PO SCH ×4 (04:41→22:33)
[2018-02-02] MEDS ORDERED: IBUPROFEN 400 MG TABLET (FP) PO PRN (07:22)
[2018-02-02] MEDS: LIDOCAINE VISCOUS 2% ORAL/TOP 20 ML UNIT-DOSE CUP MM PRN ×2 (07:32→23:55)
[2018-02-02] MEDS: amLODIPine BESYLATE 5 MG TABLET (FP) PO SCH (10:04)
[2018-02-02] MEDS: ASPIRIN 81 MG CHEWABLE TABLETS PO SCH (10:04)
[2018-02-02] MEDS: cloNIDine HCL 0.1 MG TABLET PO SCH ×2 (10:04→22:33)
[2018-02-02] MEDS: PRENATAL VITAMINS W/ FOLIC ACID TABLET (FP) PO SCH (10:04)
[2018-02-02] MEDS: NICOTINE 21 MG/24 HOURS TOPICAL PATCH TD SCH (10:05)
[2018-02-02 10:24] LABS: ALBUMIN 3.1 g/dl (3.4-5.0); ANION GAP 8 (8-16); BLOOD UREA NITROGEN 25 mg/dL (7-18); CALCIUM 8.6 mg/dL (8.5-10.1); CHLORIDE 105 mmol/L (98-107); CO2 27 mmol/L (21-32); GLUCOSE,RANDOM 114 mg/dL (74-106); POTASSIUM 3.9 mmol/L (3.5-5.1); SODIUM 140 mmol/L (136-145)
[2018-02-02 10:26] LABS: HEMATOCRIT 41.9 % (35.4-49); HEMOGLOBIN 13.9 GM/dL (11.7-16.9); MCH 32.3 pg (25.7-33.7); MCHC 33.2 g/dl (32.0-35.9); MEAN CELL VOLUME 97.2 fl (80-96); MEAN PLT VOLUME 8.2 fl (7.5-11.1); PLATELET COUNT 251 K/MM3 (134-434); RBC 4.31 M/mm3 (4.00-5.60); RDW 15.9 % (11.9-15.9)
[2018-02-02 10:28] LABS: ALK PHOS 111 U/L (45-117); CREATININE 2.2 mg/dL (0.7-1.3); SGOT/AST 24 U/L (15-37); SGPT/ALT 30 U/L (12-78)
[2018-02-02 10:34] LABS: BILIRUBIN,TOTAL < 0.1 mg/dL (0.2-1.0)
[2018-02-02] MEDS ORDERED: METHADONE HCL 10 MG TABLET PO SCH (11:00)
[2018-02-02] MEDS ORDERED: METHADONE HCL 10 MG TABLET ONE (11:27)
[2018-02-02] MEDS ORDERED: METHADONE HCL 40 MG DISPERSABLE TABLET ONE (11:27)
[2018-02-02] MEDS: METHADONE 80 MG, METHADONE 10 MG PO SCH (11:30)
[2018-02-02] MEDS ORDERED: amLODIPine BESYLATE 5 MG TABLET (FP) PO ONE (12:21)
--- NOTE | 2018-02-02 12:34 | PN ---
[facility] CIWA - CIWA Score Nausea/Vomitin-No Nausea/No Vomiting Muscle Tremors: 2 Anxiety: 4-Mod. Anxious/Guarded Agitation: 3 Paroxysmal Sweats: 2 Orientation: 0-Oriented Tacttile Disturbances: 3-Moderate Itch/Numb/Burn Auditory Disturbances: 0-None Visual Disturbances: 2-Mild Sensitivity Headache: 0-None Present CIWA-Ar Total Score: 16 [facility] Progress Note (SOAP) Subjective: Anxious, Sweating, Tremors, Interrupted Sleep. Patient dental pain in lower mouth X approx. 1 week. Patient notes that he believes that he has a tooth that needs to be removed. Objective: PATIENT A & OX 3, OBSERVED AMBULATING ON UNIT. NO ACUTE DISTRESS. PATIENT DENIES CHEST PAIN. DARKENED DISCOLORATION NOTED IN GUMS IN LOWER MOUTH. 02/02/18 12:29 Vital Signs Temperature 98 F 02/02/18 09:08 Pulse Rate 60 02/02/18 09:08 Respiratory Rate 20 02/02/18 09:08 Blood Pressure 140/86 02/02/18 09:08 O2 Sat by Pulse Oximetry (%) Laboratory Tests 02/01/18 02/02/18 02/02/18 17:35 05:50 05:50 WBC 8.0 RBC 4.31 Hgb 13.9 Hct 41.9 MCV 97.2 H MCH 32.3 MCHC 33.2 RDW 15.9 Plt Count 251 MPV 8.2 Sodium 140 Potassium 3.9 Chloride 105 Carbon Dioxide 27 Anion Gap 8 BUN 25 H D Creatinine 2.2 H Creat Clearance w eGFR 32.11 Random Glucose 114 H Calcium 8.6 Total Bilirubin < 0.1 L D AST 24 ALT 30 D Alkaline Phosphatase 111 Total Protein 7.0 Albumin 3.1 L D Urine Color Ltyellow Urine Appearance Clear Urine pH 5.0 Ur Specific [place] 1.014 Urine Protein 2+ H Urine Glucose (UA) Negative Urine Ketones Negative Urine Blood 1+ H Urine Nitrite Negative Urine Bilirubin Negative Urine Urobilinogen Negative Ur Leukocyte Esterase Negative Urine WBC (Auto) <1 Urine RBC (Auto) 1 Urine Bacteria Rare LABS NOTED. 02/02/18 12:31 Assessment: 02/02/18 12:31 WITHDRAWAL SYMPTOMS. HYPERTENSION. 02/02/18 12:32 Plan: CONTINUE DETOX. INCREASE DAILY PO FLUID INTAKE. AUGMENTIN BID X 7 DAYS FOR DENTAL INFECTION (PROPHYLAXIS). D/C IBUPROFEN AND MAGNESIUM-CONTAINING MEDS. FOR ABNORMAL ADMISSION RENAL LAB VALUES. BMP ON 02/04/2018. INCREASE AMLODIPINE TO 10 MG PO DAILY FOR PERSISTENTLY ELEVATED BP.
[2018-02-02] MEDS: AMOX TR/POT CLAV 875MG/125MG TABLETS (FP) PO SCH ×2 (12:56→17:08)
[2018-02-02] MEDS: THIAMINE HCL 100 MG TABLET (FP) PO SCH (22:33)
[2018-02-02] MEDS: ATORVASTATIN CA 20 MG TABLET (FP) PO SCH (22:33)
[2018-02-03] MEDS: ACETAMINOPHEN 325 MG TABLET (FP) PO PRN ×2 (00:54→20:10)
[2018-02-03] MEDS ORDERED: METHADONE HCL 10 MG TABLET ONE (04:44)
[2018-02-03] MEDS ORDERED: METHADONE HCL 40 MG DISPERSABLE TABLET ONE (04:44)
[2018-02-03] MEDS: METHADONE 80 MG, METHADONE 10 MG PO SCH (05:23)
[2018-02-03] MEDS: chlordiazePOXIDE HCL 25 MG CAPSULE PO SCH ×2 (05:24→10:18)
[2018-02-03] MEDS: AMOX TR/POT CLAV 875MG/125MG TABLETS (FP) PO SCH ×2 (07:56→18:01)
[2018-02-03] MEDS: amLODIPine BESYLATE 10 MG TABLET (FP) PO SCH (10:15)
[2018-02-03] MEDS: ASPIRIN 81 MG CHEWABLE TABLETS PO SCH (10:15)
[2018-02-03] MEDS: PRENATAL VITAMINS W/ FOLIC ACID TABLET (FP) PO SCH (10:15)
[2018-02-03] MEDS: cloNIDine HCL 0.1 MG TABLET PO SCH ×2 (10:15→23:10)
[2018-02-03] MEDS: NICOTINE 21 MG/24 HOURS TOPICAL PATCH TD SCH (10:16)
--- NOTE | 2018-02-03 11:07 | PN ---
[facility] CIWA - CIWA Score Nausea/Vomitin-No Nausea/No Vomiting Muscle Tremors: 5 Anxiety: 4-Mod. Anxious/Guarded Agitation: 3 Paroxysmal Sweats: 1-Minimal Palms Moist Orientation: 0-Oriented Tacttile Disturbances: 0-None Auditory Disturbances: 0-None Visual Disturbances: 0-None Headache: 0-None Present CIWA-Ar Total Score: 13 BHS Progress Note (SOAP) Subjective: ANXIETY,SWEATS,TREMORS,RIGHT LOWER PREMOLAR TOOTH ACHE. REPORTS LIDOCAINE NOT EFFECTIVE. Objective: 02/03/18 11:06 Vital Signs Temperature 98.8 F 02/03/18 09:02 Pulse Rate 84 02/03/18 09:02 Respiratory Rate 18 02/03/18 09:02 Blood Pressure 148/96 02/03/18 09:02 O2 Sat by Pulse Oximetry (%) Laboratory Last Values WBC 8.0 K/mm3 (4.0-10.0) 02/02/18 05:50 RBC 4.31 M/mm3 (4.00-5.60) 02/02/18 05:50 Hgb 13.9 GM/dL (11.7-16.9) 02/02/18 05:50 Hct 41.9 % (35.4-49) 02/02/18 05:50 MCV 97.2 fl (80-96) H 02/02/18 05:50 MCH 32.3 pg (25.7-33.7) 02/02/18 05:50 MCHC 33.2 g/dl (32.0-35.9) 02/02/18 05:50 RDW 15.9 % (11.9-15.9) 02/02/18 05:50 Plt Count 251 K/MM3 (134-434) 02/02/18 05:50 MPV 8.2 fl (7.5-11.1) 02/02/18 05:50 Sodium 140 mmol/L (136-145) 02/02/18 05:50 Potassium 3.9 mmol/L (3.5-5.1) 02/02/18 05:50 Chloride 105 mmol/L (98-107) 02/02/18 05:50 Carbon Dioxide 27 mmol/L (21-32) 02/02/18 05:50 Anion Gap 8 (8-16) 02/02/18 05:50 BUN 25 mg/dL (7-18) H D 02/02/18 05:50 Creatinine 2.2 mg/dL (0.7-1.3) H 02/02/18 05:50 Creat Clearance w eGFR 32.11 (>60) 02/02/18 05:50 Random Glucose 114 mg/dL (74-106) H 02/02/18 05:50 Calcium 8.6 mg/dL (8.5-10.1) 02/02/18 05:50 Total Bilirubin < 0.1 mg/dL (0.2-1.0) L D 02/02/18 05:50 AST 24 U/L (15-37) 02/02/18 05:50 ALT 30 U/L (12-78) D 02/02/18 05:50 Alkaline Phosphatase 111 U/L (45-117) 02/02/18 05:50 Total Protein 7.0 g/dl (6.4-8.2) 02/02/18 05:50 Albumin 3.1 g/dl (3.4-5.0) L D 02/02/18 05:50 Urine Color Ltyellow 02/01/18 17:35 Urine Appearance Clear 02/01/18 17:35 Urine pH 5.0 (5.0-8.0) 02/01/18 17:35 Ur Specific [place] 1.014 (1.001-1.035) 02/01/18 17:35 Urine Protein 2+ (NEGATIVE) H 02/01/18 17:35 Urine Glucose (UA) Negative (NEGATIVE) 02/01/18 17:35 Urine Ketones Negative (NEGATIVE) 02/01/18 17:35 Urine Blood 1+ (NEGATIVE) H 02/01/18 17:35 Urine Nitrite Negative (NEGATIVE) 02/01/18 17:35 Urine Bilirubin Negative (<2.0 mg/dL) 02/01/18 17:35 Urine Urobilinogen Negative mg/dL (0.2-1.0) 02/01/18 17:35 Ur Leukocyte Esterase Negative (NEGATIVE) 02/01/18 17:35 Urine WBC (Auto) <1 /hpf (3-5) 02/01/18 17:35 Urine RBC (Auto) 1 /hpf (0-3) 02/01/18 17:35 Urine Bacteria Rare /hpf (NONE SEEN) 02/01/18 17:35 RPR Titer Nonreactive (NONREACTIVE) 02/02/18 05:50 TOOTH:NO REDNESS/SWELLING NOTED Assessment: 02/03/18 11:07 WITHDRAWAL SX Plan: CONTINUE DETOX CHANGE DOSING FREQUENCY FOR LIDOCAINE TO Q4HRS SWISH AND SPIT.
[2018-02-03] MEDS ORDERED: LIDOCAINE VISCOUS 2% ORAL/TOP 20 ML UNIT-DOSE CUP MM PRN (11:11)
[2018-02-03] MEDS: chlordiazePOXIDE 5 MG CAPSULE PO SCH ×2 (18:02→23:10)
[2018-02-03] MEDS: ATORVASTATIN CA 20 MG TABLET (FP) PO SCH (23:10)
[2018-02-03] MEDS: THIAMINE HCL 100 MG TABLET (FP) PO SCH (23:10)
[2018-02-04] MEDS ORDERED: METHADONE HCL 40 MG DISPERSABLE TABLET ONE (04:32)
[2018-02-04] MEDS ORDERED: METHADONE HCL 10 MG TABLET ONE (04:32)
[2018-02-04] MEDS: METHADONE 80 MG, METHADONE 10 MG PO SCH (05:30)
[2018-02-04] MEDS: chlordiazePOXIDE 5 MG CAPSULE PO SCH ×2 (05:30→10:09)
[2018-02-04] MEDS: AMOX TR/POT CLAV 875MG/125MG TABLETS (FP) PO SCH ×2 (07:42→17:27)
[2018-02-04] MEDS: ASPIRIN 81 MG CHEWABLE TABLETS PO SCH (10:09)
[2018-02-04] MEDS: PRENATAL VITAMINS W/ FOLIC ACID TABLET (FP) PO SCH (10:09)
[2018-02-04] MEDS: cloNIDine HCL 0.1 MG TABLET PO SCH ×2 (10:09→22:13)
[2018-02-04] MEDS: amLODIPine BESYLATE 10 MG TABLET (FP) PO SCH (10:09)
[2018-02-04] MEDS: NICOTINE 21 MG/24 HOURS TOPICAL PATCH TD SCH (10:10)
[2018-02-04 10:40] LABS: ANION GAP 6 (8-16); BLOOD UREA NITROGEN 33 mg/dL (7-18); CALCIUM 9.4 mg/dL (8.5-10.1); CHLORIDE 108 mmol/L (98-107); CO2 30 mmol/L (21-32); GLUCOSE,RANDOM 103 mg/dL (74-106); SODIUM 144 mmol/L (136-145)
[2018-02-04 10:41] LABS: CREATININE 2.2 mg/dL (0.7-1.3)
[2018-02-04] MEDS: chlordiazePOXIDE HCL 10 MG CAPSULE PO SCH ×2 (17:27→22:12)
--- NOTE | 2018-02-04 17:28 | PN ---
[facility] Progress Note (SOAP) Subjective: Fatigue, Sweating. Objective: PATIENT A & O X 2 (UNCERTAIN ABOUT CURRENT DAY / DATE) PATIENT OBSERVED AMBULATING ON UNIT. NO ACUTE DISTRESS. 02/04/18 17:27 Vital Signs Temperature 98.4 F 02/04/18 15:27 Pulse Rate 66 02/04/18 15:27 Respiratory Rate 18 02/04/18 15:27 Blood Pressure 134/78 02/04/18 15:27 O2 Sat by Pulse Oximetry (%) Laboratory Tests 02/01/18 02/02/18 02/02/18 17:35 05:50 05:50 WBC 8.0 RBC 4.31 Hgb 13.9 Hct 41.9 MCV 97.2 H MCH 32.3 MCHC 33.2 RDW 15.9 Plt Count 251 MPV 8.2 Sodium 140 Potassium 3.9 Chloride 105 Carbon Dioxide 27 Anion Gap 8 BUN 25 H D Creatinine 2.2 H Creat Clearance w eGFR 32.11 Random Glucose 114 H Calcium 8.6 Total Bilirubin < 0.1 L D AST 24 ALT 30 D Alkaline Phosphatase 111 Total Protein 7.0 Albumin 3.1 L D Urine Color Ltyellow Urine Appearance Clear Urine pH 5.0 Ur Specific [place] 1.014 Urine Protein 2+ H Urine Glucose (UA) Negative Urine Ketones Negative Urine Blood 1+ H Urine Nitrite Negative Urine Bilirubin Negative Urine Urobilinogen Negative Ur Leukocyte Esterase Negative Urine WBC (Auto) <1 Urine RBC (Auto) 1 Urine Bacteria Rare RPR Titer 02/02/18 02/04/18 05:50 07:50 WBC RBC Hgb Hct MCV MCH MCHC RDW Plt Count MPV Sodium 144 Potassium 4.0 Chloride 108 H Carbon Dioxide 30 Anion Gap 6 L BUN 33 H D Creatinine 2.2 H Creat Clearance w eGFR Random Glucose 103 Calcium 9.4 Total Bilirubin AST ALT Alkaline Phosphatase Total Protein Albumin Urine Color Urine Appearance Urine pH Ur Specific [place] Urine Protein Urine Glucose (UA) Urine Ketones Urine Blood Urine Nitrite Urine Bilirubin Urine Urobilinogen Ur Leukocyte Esterase Urine WBC (Auto) Urine RBC (Auto) Urine Bacteria RPR Titer Nonreactive LABS NOTED. Assessment: 02/04/18 17:30 WITHDRAWAL SYMPTOMS. Plan: CONTINUE DETOX. INCREASE DAILY PO FLUID INTAKE.
[2018-02-04] MEDS: THIAMINE HCL 100 MG TABLET (FP) PO SCH (22:12)
[2018-02-04] MEDS: ATORVASTATIN CA 20 MG TABLET (FP) PO SCH (22:12)
[2018-02-05] MEDS ORDERED: METHADONE HCL 10 MG TABLET ONE (04:08)
[2018-02-05] MEDS ORDERED: METHADONE HCL 40 MG DISPERSABLE TABLET ONE (04:08)
[2018-02-05] MEDS: METHADONE 80 MG, METHADONE 10 MG PO SCH (06:11)
[2018-02-05] MEDS: chlordiazePOXIDE HCL 10 MG CAPSULE PO SCH ×2 (06:11→10:19)
[2018-02-05] MEDS: AMOX TR/POT CLAV 875MG/125MG TABLETS (FP) PO SCH ×2 (07:36→18:19)
--- NOTE | 2018-02-05 09:04 | DS ---
[facility] Detox Discharge Summary Admission Date: 02/01/18 Discharge Date: 02/05/18 - History Present History: Alcohol Dependence, MMTP - Physical Exam Results Vital Signs: Vital Signs Temperature 97 F L 02/05/18 06:22 Pulse Rate 57 L 02/05/18 06:22 Respiratory Rate 18 02/05/18 06:22 Blood Pressure 117/70 02/05/18 06:22 O2 Sat by Pulse Oximetry (%) - Treatment Hospital Course: Detox Protocol Followed, Detoxed Safely, Responded well, Discharged Condition Good, Rehab Referral Accepted - Medication Discharge Medications: Ambulatory Orders Amlodipine Besylate [Norvasc -] 5 mg PO DAILY 12/27/16 Aspirin [ASA -] 81 mg PO DAILY 12/27/16 Multivitamins [Multivit ([facility] Formulary)] 1 tab PO DAILY 12/27/16 Simvastatin [Zocor -] 40 mg PO HS 12/27/16 Amoxicillin/Potassium Clav [Augmentin 875-125 Tablet] 1 each PO BID 5 Days #10 tablet 02/04/18 - Diagnosis (1) Alcohol dependence with uncomplicated withdrawal Current Visit: Yes Status: Chronic (2) Cocaine dependence, uncomplicated Current Visit: Yes Status: Chronic (3) Insomnia secondary to depression with anxiety Current Visit: Yes Status: Acute (4) Nicotine dependence Current Visit: Yes Status: Chronic Qualifiers: Nicotine product type: cigarettes Substance use status: uncomplicated Qualified Code(s): F17.210 - Nicotine dependence, cigarettes, uncomplicated (5) Opioid dependence on agonist therapy Current Visit: Yes Status: Acute (6) Syncope Current Visit: Yes Status: Acute Qualifiers: Syncope type: unspecified Qualified Code(s): R55 - Syncope and collapse (7) Hyperlipidemia Current Visit: Yes Status: Chronic Qualifiers: Hyperlipidemia type: pure hypercholesterolemia Qualified Code(s): E78.00 - Pure hypercholesterolemia, unspecified; E78.0 - Pure hypercholesterolemia (8) Hypertension Current Visit: Yes Status: Chronic Qualifiers: Hypertension type: essential hypertension Qualified Code(s): I10 - Essential (primary) hypertension (9) Methadone maintenance therapy patient Current Visit: Yes Status: Chronic - AMA Did Patient Leave Against Medical Advice: No
[2018-02-05] MEDS: PRENATAL VITAMINS W/ FOLIC ACID TABLET (FP) PO SCH (10:19)
[2018-02-05] MEDS: NICOTINE 21 MG/24 HOURS TOPICAL PATCH TD SCH (10:19)
[2018-02-05] MEDS: amLODIPine BESYLATE 10 MG TABLET (FP) PO SCH (10:19)
[2018-02-05] MEDS: cloNIDine HCL 0.1 MG TABLET PO SCH ×2 (10:19→22:08)
[2018-02-05] MEDS: ASPIRIN 81 MG CHEWABLE TABLETS PO SCH (10:19)
--- NOTE | 2018-02-05 12:09 | PN ---
[facility] Progress Note Note: pt will be d/c tomorrow. waiting on rehab bed
[2018-02-05] MEDS: THIAMINE HCL 100 MG TABLET (FP) PO SCH (22:08)
[2018-02-05] MEDS: ATORVASTATIN CA 20 MG TABLET (FP) PO SCH (22:08)
[2018-02-06] MEDS ORDERED: METHADONE HCL 40 MG DISPERSABLE TABLET ONE (03:06)
[2018-02-06] MEDS ORDERED: METHADONE HCL 10 MG TABLET ONE (03:06)
[2018-02-06] MEDS: METHADONE 80 MG, METHADONE 10 MG PO SCH (05:21)
[2018-02-06] MEDS: AMOX TR/POT CLAV 875MG/125MG TABLETS (FP) PO SCH ×2 (07:28→16:57)
[2018-02-06] MEDS: PRENATAL VITAMINS W/ FOLIC ACID TABLET (FP) PO SCH (10:04)
[2018-02-06] MEDS: NICOTINE 21 MG/24 HOURS TOPICAL PATCH TD SCH (10:04)
[2018-02-06] MEDS: amLODIPine BESYLATE 10 MG TABLET (FP) PO SCH (10:04)
[2018-02-06] MEDS: ASPIRIN 81 MG CHEWABLE TABLETS PO SCH (10:04)
[2018-02-06] MEDS: cloNIDine HCL 0.1 MG TABLET PO SCH ×2 (10:04→21:09)
--- NOTE | 2018-02-06 11:02 | PN ---
[facility] Progress Note (SOAP) Subjective: DETOX COMPLETED. PT HAS A REHAB BED TODAY ON [address]. ALERT O X 3. Objective: 02/06/18 11:01 Vital Signs Temperature 95.9 F L 02/06/18 09:14 Pulse Rate 61 02/06/18 09:14 Respiratory Rate 20 02/06/18 09:14 Blood Pressure 120/82 02/06/18 09:14 O2 Sat by Pulse Oximetry (%) Laboratory Last Values WBC 8.0 K/mm3 (4.0-10.0) 02/02/18 05:50 RBC 4.31 M/mm3 (4.00-5.60) 02/02/18 05:50 Hgb 13.9 GM/dL (11.7-16.9) 02/02/18 05:50 Hct 41.9 % (35.4-49) 02/02/18 05:50 MCV 97.2 fl (80-96) H 02/02/18 05:50 MCH 32.3 pg (25.7-33.7) 02/02/18 05:50 MCHC 33.2 g/dl (32.0-35.9) 02/02/18 05:50 RDW 15.9 % (11.9-15.9) 02/02/18 05:50 Plt Count 251 K/MM3 (134-434) 02/02/18 05:50 MPV 8.2 fl (7.5-11.1) 02/02/18 05:50 Sodium 144 mmol/L (136-145) 02/04/18 07:50 Potassium 4.0 mmol/L (3.5-5.1) 02/04/18 07:50 Chloride 108 mmol/L (98-107) H 02/04/18 07:50 Carbon Dioxide 30 mmol/L (21-32) 02/04/18 07:50 Anion Gap 6 (8-16) L 02/04/18 07:50 BUN 33 mg/dL (7-18) H D 02/04/18 07:50 Creatinine 2.2 mg/dL (0.7-1.3) H 02/04/18 07:50 Creat Clearance w eGFR 32.11 (>60) 02/02/18 05:50 Random Glucose 103 mg/dL (74-106) 02/04/18 07:50 Calcium 9.4 mg/dL (8.5-10.1) 02/04/18 07:50 Total Bilirubin < 0.1 mg/dL (0.2-1.0) L D 02/02/18 05:50 AST 24 U/L (15-37) 02/02/18 05:50 ALT 30 U/L (12-78) D 02/02/18 05:50 Alkaline Phosphatase 111 U/L (45-117) 02/02/18 05:50 Total Protein 7.0 g/dl (6.4-8.2) 02/02/18 05:50 Albumin 3.1 g/dl (3.4-5.0) L D 02/02/18 05:50 Urine Color Ltyellow 02/01/18 17:35 Urine Appearance Clear 02/01/18 17:35 Urine pH 5.0 (5.0-8.0) 02/01/18 17:35 Ur Specific [place] 1.014 (1.001-1.035) 02/01/18 17:35 Urine Protein 2+ (NEGATIVE) H 02/01/18 17:35 Urine Glucose (UA) Negative (NEGATIVE) 02/01/18 17:35 Urine Ketones Negative (NEGATIVE) 02/01/18 17:35 Urine Blood 1+ (NEGATIVE) H 02/01/18 17:35 Urine Nitrite Negative (NEGATIVE) 02/01/18 17:35 Urine Bilirubin Negative (<2.0 mg/dL) 02/01/18 17:35 Urine Urobilinogen Negative mg/dL (0.2-1.0) 02/01/18 17:35 Ur Leukocyte Esterase Negative (NEGATIVE) 02/01/18 17:35 Urine WBC (Auto) <1 /hpf (3-5) 02/01/18 17:35 Urine RBC (Auto) 1 /hpf (0-3) 02/01/18 17:35 Urine Bacteria Rare /hpf (NONE SEEN) 02/01/18 17:35 RPR Titer Nonreactive (NONREACTIVE) 02/02/18 05:50 Assessment: 02/06/18 11:01 MEDICALLY STABLE Plan: D/C PT TO REHAB TODAY.
--- NOTE | 2018-02-06 11:13 | DS ---
[facility] Detox Discharge Summary Admission Date: 02/01/18 Discharge Date: 02/06/18 - History Present History: Alcohol Dependence, Cocaine Dependence, MMTP Additional Comments: DETOX COMPLETED. ALERT O X 3. NAD. PT REPORTS HIS PMD IS DR. XUAN ZAMUDIO AT [address] [place] [address]. PT WILL F/U WITH PCP AFTER D[facility]C [facility]. Pertinent Past History: PLEASE SEE DX BELOW - Physical Exam Results Vital Signs: Vital Signs Temperature 95.9 F L 02/06/18 09:14 Pulse Rate 61 02/06/18 09:14 Respiratory Rate 20 02/06/18 09:14 Blood Pressure 120/82 02/06/18 09:14 O2 Sat by Pulse Oximetry (%) Pertinent Admission Physical Exam Findings: WITHDRAWAL SX Laboratory Last Values WBC 8.0 K/mm3 (4.0-10.0) 02/02/18 05:50 RBC 4.31 M/mm3 (4.00-5.60) 02/02/18 05:50 Hgb 13.9 GM/dL (11.7-16.9) 02/02/18 05:50 Hct 41.9 % (35.4-49) 02/02/18 05:50 MCV 97.2 fl (80-96) H 02/02/18 05:50 MCH 32.3 pg (25.7-33.7) 02/02/18 05:50 MCHC 33.2 g/dl (32.0-35.9) 02/02/18 05:50 RDW 15.9 % (11.9-15.9) 02/02/18 05:50 Plt Count 251 K/MM3 (134-434) 02/02/18 05:50 MPV 8.2 fl (7.5-11.1) 02/02/18 05:50 Sodium 144 mmol/L (136-145) 02/04/18 07:50 Potassium 4.0 mmol/L (3.5-5.1) 02/04/18 07:50 Chloride 108 mmol/L (98-107) H 02/04/18 07:50 Carbon Dioxide 30 mmol/L (21-32) 02/04/18 07:50 Anion Gap 6 (8-16) L 02/04/18 07:50 BUN 33 mg/dL (7-18) H D 02/04/18 07:50 Creatinine 2.2 mg/dL (0.7-1.3) H 02/04/18 07:50 Creat Clearance w eGFR 32.11 (>60) 02/02/18 05:50 Random Glucose 103 mg/dL (74-106) 02/04/18 07:50 Calcium 9.4 mg/dL (8.5-10.1) 02/04/18 07:50 Total Bilirubin < 0.1 mg/dL (0.2-1.0) L D 02/02/18 05:50 AST 24 U/L (15-37) 02/02/18 05:50 ALT 30 U/L (12-78) D 02/02/18 05:50 Alkaline Phosphatase 111 U/L (45-117) 02/02/18 05:50 Total Protein 7.0 g/dl (6.4-8.2) 02/02/18 05:50 Albumin 3.1 g/dl (3.4-5.0) L D 02/02/18 05:50 Urine Color Ltyellow 02/01/18 17:35 Urine Appearance Clear 02/01/18 17:35 Urine pH 5.0 (5.0-8.0) 02/01/18 17:35 Ur Specific [place] 1.014 (1.001-1.035) 02/01/18 17:35 Urine Protein 2+ (NEGATIVE) H 02/01/18 17:35 Urine Glucose (UA) Negative (NEGATIVE) 02/01/18 17:35 Urine Ketones Negative (NEGATIVE) 02/01/18 17:35 Urine Blood 1+ (NEGATIVE) H 02/01/18 17:35 Urine Nitrite Negative (NEGATIVE) 02/01/18 17:35 Urine Bilirubin Negative (<2.0 mg/dL) 02/01/18 17:35 Urine Urobilinogen Negative mg/dL (0.2-1.0) 02/01/18 17:35 Ur Leukocyte Esterase Negative (NEGATIVE) 02/01/18 17:35 Urine WBC (Auto) <1 /hpf (3-5) 02/01/18 17:35 Urine RBC (Auto) 1 /hpf (0-3) 02/01/18 17:35 Urine Bacteria Rare /hpf (NONE SEEN) 02/01/18 17:35 RPR Titer Nonreactive (NONREACTIVE) 02/02/18 05:50 - Treatment Hospital Course: Detox Protocol Followed, Detoxed Safely, Responded well, Discharged Condition Good, Rehab Referral Accepted Patient has Accepted a Rehab Referral to: [facility] [address] [place] [address] - Medication Discharge Medications: Ambulatory Orders Amlodipine Besylate [Norvasc -] 5 mg PO DAILY 12/27/16 Aspirin [ASA -] 81 mg PO DAILY 12/27/16 Multivitamins [Multivit ([facility] Formulary)] 1 tab PO DAILY 12/27/16 Simvastatin [Zocor -] 40 mg PO HS 12/27/16 Amoxicillin/Potassium Clav [Augmentin 875-125 Tablet] 1 each PO BID 5 Days #10 tablet 02/04/18 - Diagnosis (1) Alcohol dependence with uncomplicated withdrawal Current Visit: Yes Status: Chronic (2) Cocaine dependence, uncomplicated Current Visit: Yes Status: Chronic (3) Nicotine dependence Current Visit: Yes Status: Chronic Qualifiers: Nicotine product type: cigarettes Substance use status: uncomplicated Qualified Code(s): F17.210 - Nicotine dependence, cigarettes, uncomplicated (4) Hyperlipidemia Current Visit: Yes Status: Chronic Qualifiers: Hyperlipidemia type: pure hypercholesterolemia Qualified Code(s): E78.00 - Pure hypercholesterolemia, unspecified; E78.0 - Pure hypercholesterolemia (5) Hypertension Current Visit: Yes Status: Chronic Qualifiers: Hypertension type: essential hypertension Qualified Code(s): I10 - Essential (primary) hypertension (6) Methadone maintenance therapy patient Current Visit: Yes Status: Chronic (7) Toothache Current Visit: Yes Status: Acute - AMA Did Patient Leave Against Medical Advice: No
[2018-02-06] MEDS: ATORVASTATIN CA 20 MG TABLET (FP) PO SCH (21:10)
[2018-02-06] MEDS: THIAMINE HCL 100 MG TABLET (FP) PO SCH (21:10)
[2018-02-06] MEDS: MELATONIN 5 MG TABLETS PO PRN (21:10)
[2018-02-07] MEDS ORDERED: METHADONE HCL 40 MG DISPERSABLE TABLET ONE (06:07)
[2018-02-07] MEDS ORDERED: METHADONE HCL 10 MG TABLET ONE (06:07)
[2018-02-07] MEDS: METHADONE 80 MG, METHADONE 10 MG PO SCH (06:13)
[2018-02-07] MEDS: AMOX TR/POT CLAV 875MG/125MG TABLETS (FP) PO SCH ×2 (08:05→16:57)
[2018-02-07] MEDS: amLODIPine BESYLATE 10 MG TABLET (FP) PO SCH (09:35)
[2018-02-07] MEDS: NICOTINE 21 MG/24 HOURS TOPICAL PATCH TD SCH (09:35)
[2018-02-07] MEDS: cloNIDine HCL 0.1 MG TABLET PO SCH ×2 (09:35→21:04)
[2018-02-07] MEDS: PRENATAL VITAMINS W/ FOLIC ACID TABLET (FP) PO SCH (09:35)
[2018-02-07] MEDS: ASPIRIN 81 MG CHEWABLE TABLETS PO SCH (09:36)
--- NOTE | 2018-02-07 13:09 | HP ---
Psychiatrist Admission - Data Date of interview: 02/07/18 Identifying data: This is the first inpatient rehabilitaiton admission to for this 48 year old single AA male, who is domiciled and unemployed, supported on SSD, he is a father of 2 children. Medical History: HTN, dyslipidemia, h/co CVA in 2016, smokes cigarettes 10 a day , on MMTP 90 mg/daily. Psychiatric History: Patient denies history of psychiatric hospitalizations, OPD treatment or suicidal attempts, he reports he needs some aid for insomnia. Physical/Sexual Abuse/Trauma History: Patient denies history of sexual, phsyical and verbal abuse Vital Signs: Vital Signs - 24 hr 02/06/18 02/06/18 02/07/18 15:10 21:00 00:30 Temperature 98.2 F Pulse Rate 57 L 59 L Respiratory 20 16 Rate Blood Pressure 109/89 136/91 02/07/18 02/07/18 02/07/18 03:30 06:34 10:00 Temperature 98.0 F Pulse Rate 58 L 56 L Respiratory 18 18 Rate Blood Pressure 140/77 122/61 Allergies/Adverse Reactions: Allergies Allergy/AdvReac Type Severity Reaction Status Date / Time No Known Allergies Allergy Verified 02/01/18 13:33 Date of last physical exam: 02/01/18 Concur with the findings of this exam: Yes - Substance Abuse/Tx History Hx Alcohol Use: Yes Hx Substance Use: Yes Substance Use Type: Cocaine, Heroin Hx Substance Use Treatment: Yes ([facility] 8 months program.) Mental Status Exam - Mental Status Exam Alert and Oriented to: Time, Place, Person Cognitive Function: Good Patient Appearance: Well Groomed Mood: Withdrawn Affect: Constricted Patient Behavior: Sedated, Fatigued Speech Pattern: Clear Voice Loudness: Normal Thought Process: Intact, Goal Oriented Thought Disorder: Not Present Hallucinations: Denies Suicidal Ideation: Denies Homicidal Ideation: Denies Insight/Judgement: Fair Sleep: Poorly, Difficulty falling asleep Appetite: Fair Muscle strength/Tone: Normal Gait/Station: Normal Psychiatric Findings - Problem List ([place] 1, 2,3) (1) Cocaine dependence Current Visit: Yes Status: Acute (2) Alcohol dependence Current Visit: Yes Status: Acute (3) Substance-induced sleep disorder Current Visit: Yes Status: Acute (4) Opioid dependence on agonist therapy Current Visit: Yes Status: Acute (5) Hyperlipidemia Current Visit: Yes Status: Chronic Qualifiers: Hyperlipidemia type: pure hypercholesterolemia Qualified Code(s): E78.00 - Pure hypercholesterolemia, unspecified; E78.0 - Pure hypercholesterolemia (6) Hypertension Current Visit: Yes Status: Chronic Qualifiers: Hypertension type: essential hypertension Qualified Code(s): I10 - Essential (primary) hypertension (7) Methadone maintenance therapy patient Current Visit: Yes Status: Chronic Comment: 90 MG VERIFIED BY [facility] RN A.M. (8) Nicotine dependence Current Visit: Yes Status: Chronic Qualifiers: Nicotine product type: cigarettes Substance use status: uncomplicated Qualified Code(s): F17.210 - Nicotine dependence, cigarettes, uncomplicated - Initial Treatment Plan Initial Treatment Plan: Will add Benadyl 50 mg po , monitor progress as needed.
[2018-02-07] MEDS ORDERED: diphenhydrAMINE HCL 50 MG CAPSULE PO PRN (13:24)
[2018-02-07] MEDS: THIAMINE HCL 100 MG TABLET (FP) PO SCH (21:04)
[2018-02-07] MEDS: ATORVASTATIN CA 20 MG TABLET (FP) PO SCH (21:04)
[2018-02-07] MEDS: MELATONIN 5 MG TABLETS PO PRN (21:05)
[2018-02-08] MEDS ORDERED: METHADONE HCL 40 MG DISPERSABLE TABLET ONE (03:15)
[2018-02-08] MEDS ORDERED: METHADONE HCL 10 MG TABLET ONE (03:15)
[2018-02-08] MEDS: METHADONE 80 MG, METHADONE 10 MG PO SCH (06:11)
[2018-02-08] MEDS: AMOX TR/POT CLAV 875MG/125MG TABLETS (FP) PO SCH ×2 (07:03→16:52)
[2018-02-08] MEDS: PRENATAL VITAMINS W/ FOLIC ACID TABLET (FP) PO SCH (09:30)
[2018-02-08] MEDS: ASPIRIN 81 MG CHEWABLE TABLETS PO SCH (09:30)
[2018-02-08] MEDS: cloNIDine HCL 0.1 MG TABLET PO SCH ×2 (09:30→21:03)
[2018-02-08] MEDS: NICOTINE 21 MG/24 HOURS TOPICAL PATCH TD SCH (09:30)
[2018-02-08] MEDS: amLODIPine BESYLATE 10 MG TABLET (FP) PO SCH (09:31)
[2018-02-08] MEDS: THIAMINE HCL 100 MG TABLET (FP) PO SCH (21:03)
[2018-02-08] MEDS: MELATONIN 5 MG TABLETS PO PRN (21:03)
[2018-02-08] MEDS: ATORVASTATIN CA 20 MG TABLET (FP) PO SCH (21:03)
[2018-02-09] MEDS ORDERED: METHADONE HCL 10 MG TABLET ONE (03:17)
[2018-02-09] MEDS ORDERED: METHADONE HCL 40 MG DISPERSABLE TABLET ONE (03:17)
[2018-02-09] MEDS: METHADONE 80 MG, METHADONE 10 MG PO SCH (05:58)
[2018-02-09 06:42] VITALS: BP 146/89; PULSE 67; TEMP 97.8
[2018-02-09] MEDS: AMOX TR/POT CLAV 875MG/125MG TABLETS (FP) PO SCH (07:43)
[2018-02-09] MEDS: cloNIDine HCL 0.1 MG TABLET PO SCH (09:00)
[2018-02-09] MEDS: ASPIRIN 81 MG CHEWABLE TABLETS PO SCH (09:00)
[2018-02-09] MEDS: amLODIPine BESYLATE 10 MG TABLET (FP) PO SCH (09:00)
[2018-02-09] MEDS: PRENATAL VITAMINS W/ FOLIC ACID TABLET (FP) PO SCH (09:01)
[2018-02-09] MEDS: NICOTINE 21 MG/24 HOURS TOPICAL PATCH TD SCH (09:01)
--- NOTE | 2018-02-09 10:08 | PN ---
Psychiatric Progress Note Vital Signs: Vital Signs Period Temp Pulse Resp BP Sys/Key Pulse Ox Last 24 Hr 97.8 F 65-67 16-18 126-146/83-89 Date of Session: 02/09/18 Chief Complaint:: leaving ama HPI: The patient is a 47 year old was admitted to on 02/06/18 with history of alcohol, nicotine, on MMTP, substance induced sleep disorder. ROS: hyperlipidemia,HTN medically managed. Current Medications: Active Medications Generic Name Dose Route Start Last Admin Trade Name Freq PRN Reason Stop Dose Admin Acetaminophen 650 mg 02/01/18 13:56 02/03/18 20:10 Tylenol - PO 650 mg Q4H PRN Administration FEVER Amlodipine Besylate 10 mg 02/03/18 10:00 02/09/18 09:00 Norvasc - PO 10 mg DAILY JAZMYN Administration Amoxicillin/Clavulanate Potassium 1 tab 02/02/18 12:30 02/09/18 07:43 Augmentin - 875mg Tablet PO 02/09/18 12:29 1 tab BID@0800,1730 JAZMYN Administration Aspirin 81 mg 02/02/18 10:00 02/09/18 09:00 Asa - PO 81 mg DAILY JAZMYN Administration Atorvastatin Calcium 20 mg 02/01/18 22:00 02/08/18 21:03 Lipitor - PO 20 mg HS JAZMYN Administration Clonidine 0.1 mg 02/01/18 22:00 02/09/18 09:00 Catapres - PO 0.1 mg BID JAZMYN Administration Diphenhydramine HCl 50 mg 02/07/18 13:24 Benadryl - PO HS PRN INSOMNIA Eucalyptus/Menthol/Phenol/Sorbitol 1 each 02/01/18 13:56 Cepastat Lozenge - MM Q4H PRN SORE THROAT Guaifenesin 10 ml 02/01/18 13:56 Robitussin Dm - PO Q6H PRN COUGH Lidocaine HCl 20 ml 02/03/18 11:11 02/05/18 18:24 Xylocaine 2% Viscous Oral - MM 20 ml Q4HPO PRN Administration ORAL PAIN/MOUTH SORES Loperamide HCl 4 mg 02/01/18 13:56 Imodium - PO Q6H PRN DIARRHEA Melatonin 5 mg 02/01/18 22:00 02/08/18 21:03 Melatonin PO 5 mg HS PRN Administration INSOMNIA Methadone HCl 80 mg/ Methadone 90 mg 02/02/18 11:20 02/09/18 05:58 HCl 10 mg PO 02/09/18 11:19 90 mg DAILY@0600 JAZMYN Administration Nicotine 21 mg 02/01/18 14:30 02/09/18 09:01 Nicoderm Patch - TD Not Given DAILY JAZMYN Nicotine Polacrilex 2 mg 02/01/18 13:56 Nicorette Gum - BUC Q2H PRN NICOTINE REPLACEMENT RX Multivit/Folic Acid/Iron 1 tab 02/02/18 10:00 02/09/18 09:01 Vitamins ([facility]) - PO 1 tab DAILY JAZMYN Administration Pseudoephedrine/Triprolidine 1 combo 02/01/18 13:56 Actifed - PO TID PRN NASAL CONGESTION Thiamine HCl 100 mg 02/01/18 22:00 02/08/18 21:03 Vitamin B1 - PO 100 mg HS JAZMYN Administration Current Side Effect: No Lab tests ordered: No Lab tests reviewed: Yes Provider note:: Met with the patient to explore reasons for terminating treatment at this time, patient reports that he he has a personal business to take care of, patient was encouraged to stay in treatment , but adamant to leave , script for Seroquel 50 mg for 30 days provided, stable for AMA discharge. Total face to face time:: 10 Mental Status Exam - Mental Status Exam Alert and Oriented to: Time, Place, Person Cognitive Function: Good Patient Appearance: Well Groomed Mood: Hopeful Affect: Appropriate, Mood Congruent Patient Behavior: Appropriate, Cooperative Speech Pattern: Clear, Appropriate Voice Loudness: Normal Thought Process: Intact Thought Disorder: Not Present Hallucinations: Denies Suicidal Ideation: Denies Homicidal Ideation: Denies Insight/Judgement: Good Sleep: Well Appetite: Good Muscle strength/Tone: Normal Gait/Station: Normal Psychiatric Treatment Plan - Problem List (5) Hyperlipidemia Qualifiers: Hyperlipidemia type: pure hypercholesterolemia Qualified Code(s): E78.00 - Pure hypercholesterolemia, unspecified; E78.0 - Pure hypercholesterolemia (6) Hypertension Qualifiers: Hypertension type: essential hypertension Qualified Code(s): I10 - Essential (primary) hypertension (7) Methadone maintenance therapy patient Comment: 90 MG VERIFIED BY [facility] RN A.M. (8) Nicotine dependence Qualifiers: Nicotine product type: cigarettes Substance use status: uncomplicated Qualified Code(s): F17.210 - Nicotine dependence, cigarettes, uncomplicated
== END 2018-02-09 09:30 | disposition left against medical advice (07) | DRG 894 ==
LOC: YASAS 11:17 → Y3N 14:04 → Y5N 02-06 14:09
PROVIDERS: ADMIT Internal Medicine; ATTEND Psychiatry & Neurology Psychiatry
PROC: HZ42ZZZ Group Counseling for Substance Abuse Treatment, Cognitive-Behavioral (ICD-10-PCS; principal; 2018-02-01)
PROC: HZ2ZZZZ Detoxification Services for Substance Abuse Treatment (ICD-10-PCS; 2018-02-06)
DX: F11.20 Opioid dependence, uncomplicated (principal); F14.20 Cocaine dependence, uncomplicated; F10.230 Alcohol dependence with withdrawal, uncomplicated; F19.282 Other psychoactive substance dependence with psychoactive substance-induced sleep disorder; F17.210 Nicotine dependence, cigarettes, uncomplicated; F51.05 Insomnia due to other mental disorder; I10 Essential (primary) hypertension; E78.00 Pure hypercholesterolemia, unspecified; R55 Syncope and collapse; Z86.73 Personal history of transient ischemic attack (TIA), and cerebral infarction without residual deficits
CPT/HCPCS: 36415; 80048; 80053; 81003; 81015; 85027; 86593; 87389; 93005; 93010; J0735